=== PATIENT | male | born 1980 | race Hispanic/Latino ===

== ENCOUNTER → 2018-08-16 | Outpatient (CLI) | payer OTHER ==
--- NOTE | 2018-08-16 10:22 | REP ---
UNILATERAL LEFT RIBS, PA CHEST: HISTORY: Left chest nodule. Previous films are not available for comparison. The lungs are hyperinflated. Linear density is present in the right upper lobe consistent with atelectasis or scar. A 5 mm parenchymal nodule is present in the left lower lobe. The heart is normal in size. The pulmonary vasculature is normal in appearance. The bony structure is intact. IMPRESSION: 1. Right upper lobe atelectasis or scar. 2. 5 mm left lower lobe parenchymal nodule. CT of the chest may be helpful for further evaluation. Electronically Signed by Alexy Herrera MD 08/16/2018 10:27 A
== END ==
LOC: M RAD 08:47
PROVIDERS: ATTEND Surgery
DX: R91.8 Other nonspecific abnormal finding of lung field (principal)